=== PATIENT | female | born 1955 | race Caucasian/White ===

== ENCOUNTER 2017-09-11 07:40 | Emergency (ER) | payer OTHER ==
[~2017-09-11] VITALS: Ht 165.1 cm; Wt 75.5 kg
[~2017-09-11 07:40] MED LIST: GLUC1000 PO; LORTA5 PO; MEDR4PAK3 PO
[2017-09-11 07:47] VITALS: BP 182/87; PULSE 72; RESP 16; TEMP 98.1; O2SAT 96
[2017-09-11] MEDS ORDERED: ATOR10TA15 PO (07:55)
[2017-09-11] MEDS ORDERED: METF1000 PO (07:55)
[2017-09-11] MEDS ORDERED: ASPI-516 CHEW (07:56)
--- NOTE | 2017-09-11 08:17 | PD ---
HPI Chief Complaint: Skin Problem Time Seen by Provider: 08:07 Travel History International Travel<30 days: No Contact w/Intl Traveler<30days: No Traveled to known affect area: No History of Present Illness HPI This 62-year-old female is complaining of swelling and pain in her right hand. She is right-handed. She says that about 10 day days ago she was doing yard work and she thinks thin tip of a palm frond may have gone into the back of her hand. She noted a small black spot on the skin. Since then the third metacarpophalangeal joint has been swollen and quite painful. She has not noted a fever. It is very uncomfortable for her and keeps her awake at night. She does have a history of type 2 diabetes. She does not have a history of arthritis. PFSH Past Medical History Hx Anticoagulant Therapy: Yes (81 MG ASA DAILY) Diabetes: Yes (TYPE 2) Patient Takes Glucophage: Yes Diminished Hearing: No Tetanus Vaccination: Unknown ?: Not LMP: MENOPAUSAL Past Surgical History Tonsillectomy: Yes Social History Alcohol Use: Yes (rarely) Tobacco Use: No Substance Use: No Allergies-Medications (Allergen,Severity, Reaction): Coded Allergies: No Known Allergies (Unverified Adverse Reaction, Unknown, 09/11/17) Reported Meds & Prescriptions Reported Meds & Active Scripts Active Reported Aspirin 81 Mg Chew 81 Mg CHEW DAILY Metformin (Metformin HCl) 1,000 Mg Tab 1,000 Mg PO BIDPC Atorvastatin (Atorvastatin Calcium) 10 Mg Tab 10 Mg PO HS Review of Systems Except as stated in HPI: all other systems reviewed are Neg General / Constitutional: No: Fever, Chills Eyes: No: Diploplia, Blurred Vision Genitourinary: No: Urgency Hematologic/Lymphatic: No: Easy Bruising Physical Exam Narrative GENERAL: Well-developed female SKIN: Focused skin assessment warm/dry. HEAD: Atraumatic. Normocephalic. EYES: Pupils equal and round. No scleral icterus. No injection or drainage. ENT: No nasal bleeding or discharge. Mucous membranes pink and moist. NECK: Trachea midline. No JVD. MUSCULOSKELETAL: No obvious deformities. No clubbing. No cyanosis. No edema. Right hand does not show any deformity. There is no erythema. There is swelling at the third metacarpophalangeal joint with local tenderness. She is able to flex and extend the joint but it is uncomfortable for her. There is no lymphangitis NEUROLOGICAL: Awake and alert. No obvious cranial nerve deficits. Motor grossly within normal limits. Normal speech. PSYCHIATRIC: Appropriate mood and affect; insight and judgment normal. Data Data Last Documented VS Vital Signs Date Time Temp Pulse Resp B/P (MAP) Pulse Ox O2 Delivery O2 Flow Rate FiO2 09/11/17 11:47 78 16 159/82 (107) 100 Room Air 09/11/17 07:47 98.1 Orders Orders Complete Blood Count With Diff (09/11/17 08:11) Basic Metabolic Panel (Bmp) (09/11/17 08:11) Hand, Complete (Cpx7esc) (09/11/17 08:12) Tetanus/Diphtheria Tox Adult (Tetanus/Di (09/11/17 08:30) Cephalexin (Keflex) (09/11/17 09:30) Mri Hand W&W/O Contrast (09/11/17 ) Gadodiamide Pf Inj (Omniscan Pf Inj) (09/11/17 11:30) Labs Laboratory Tests Test 09/11/17 08:19 White Blood Count 9.1 TH/MM3 Red Blood Count 4.81 MIL/MM3 Hemoglobin 14.3 GM/DL Hematocrit 41.8 % Mean Corpuscular Volume 86.9 FL Mean Corpuscular Hemoglobin 29.7 PG Mean Corpuscular Hemoglobin Concent 34.1 % Red Cell Distribution Width 13.0 % Platelet Count 406 TH/MM3 Mean Platelet Volume 8.7 FL Neutrophils (%) (Auto) 58.7 % Lymphocytes (%) (Auto) 34.2 % Monocytes (%) (Auto) 4.5 % Eosinophils (%) (Auto) 2.3 % Basophils (%) (Auto) 0.3 % Neutrophils # (Auto) 5.4 TH/MM3 Lymphocytes # (Auto) 3.1 TH/MM3 Monocytes # (Auto) 0.4 TH/MM3 Eosinophils # (Auto) 0.2 TH/MM3 Basophils # (Auto) 0.0 TH/MM3 CBC Comment DIFF FINAL Differential Comment Blood Urea Nitrogen 19 MG/DL Creatinine 1.00 MG/DL Random Glucose 193 MG/DL Calcium Level 9.7 MG/DL Sodium Level 137 MEQ/L Potassium Level 4.2 MEQ/L Chloride Level 104 MEQ/L Carbon Dioxide Level 24.1 MEQ/L Anion Gap 9 MEQ/L Estimat Glomerular Filtration Rate 56 ML/MIN MDM Medical Decision Making Medical Screen Exam Complete: Yes Emergency Medical Condition: Yes Medical Record Reviewed: Yes Differential Diagnosis Differential includes foreign body, arthritis, septic arthritis Narrative Course White count is 9000. Blood sugar is 190. Plain x-rays do not show a foreign body or any abnormality. The patient does report that her symptoms have been progressive and I am very suspicious of foreign body present. I have discussed the case with Dr. Kennedy who recommends MRI. MRI has been done and shows soft tissue inflammation around the third metacarpal phalangeal joint but no evidence of osteomyelitis or abscess. Patient will be placed on Keflex. She is to follow-up with Dr. Kennedy for appointment on Sunday Diagnosis Primary Impression: Inflammation of hand joint Referrals: Yoandy Kennedy III, MD Scripts Cephalexin (Keflex) 500 Mg Cap 500 MG PO Q6H for Infection for 7 Days, #28 CAP 0 Refills Prov: Jose A Garcia MD 09/11/17 Disposition: DISCHARGE HOME Condition: Stable Jose A Garcia MD Sep 11, 2017 08:17
[2017-09-11 08:26] LABS: AUTOMATED NEUTROPHIL # 5.4 TH/MM3 (1.8-7.7); BASOPHIL % 0.3 % (0.0-2.0); EOSINOPHIL # 0.2 TH/MM3 (0-0.4); EOSINOPHIL % 2.3 % (0.0-4.0); HEMATOCRIT 41.8 % (35.0-46.0); HEMOGLOBIN 14.3 GM/DL (11.6-15.3); LYMPH % 34.2 % (9.0-44.0); LYMPHOCYTE # 3.1 TH/MM3 (1.0-4.8); MEAN CELL VOLUME 86.9 FL (80.0-100.0); MEAN CORPUSCULAR HEMOGLOBIN 29.7 PG (27.0-34.0); MEAN CORPUSCULAR HGB CONC 34.1 % (32.0-36.0); MEAN PLATELET VOLUME 8.7 FL (7.0-11.0); MONO % 4.5 % (0.0-8.0); MONOCYTE # 0.4 TH/MM3 (0-0.9); NEUT % 58.7 % (16.0-70.0); PLATELET COUNT 406 TH/MM3 (150-450); RED BLOOD COUNT 4.81 MIL/MM3 (4.00-5.30); WHITE BLOOD COUNT 9.1 TH/MM3 (4.0-11.0)
[2017-09-11] MEDS ORDERED: TETANUS/DIPHTHERIA TOXOID ADULT 0.5 ML VIAL IM ONE (08:30)
[2017-09-11 08:35] LABS: CALCIUM 9.7 MG/DL (8.5-10.1)
[2017-09-11 08:36] LABS: BICARBONATE 24.1 MEQ/L (21.0-32.0)
[2017-09-11] MEDS ORDERED: CEPHALEXIN MONOHYDRATE 500 MG CAP PO ONE (09:30)
--- NOTE | 2017-09-11 09:35 | RADRPT ---
EXAM DATE: 09/11/2017 8:54 AM EDT AGE/SEX: 62 years / Female INDICATIONS: Right hand pain/swelling mostly at the 3rd MCP joint after being stuck by thorn of palm while trimming. CLINICAL DATA: This is the patient's initial encounter. Patient reports that signs and symptoms have been present for 1 week and indicates a pain score of 6/10. MEDICAL/SURGICAL HISTORY: None. None. COMPARISON: No prior [facility] exams available for comparison. FINDINGS: Bony structures are intact and in normal alignment. Osseous density is normal. Soft tissues are unre markable. No radiopaque foreign bodies seen. Some irregularity involving the distal aspect of the fi fth middle phalangeal bone could be an old fracture CONCLUSION: No evidence of recent bony injury. Electronically signed by: Sonido Strickland MD 09/11/2017 9:34 AM EDT
[2017-09-11] MEDS ORDERED: GADODIAMIDE PF 287 MG/ML 5 ML VIAL (for RAD MRI) IV PUSH ONE (11:30)
[2017-09-11 11:47] VITALS: BP 159/82; PULSE 78; RESP 16; O2SAT 100
--- NOTE | 2017-09-11 13:41 | RADRPT ---
EXAM DATE: 09/11/2017 11:49 AM EDT AGE/SEX: 62 years / Female INDICATIONS: Abscess. Swelling at 3rd MCP jt of right hand. CLINICAL DATA: This is the patient's initial encounter. Patient reports that signs and symptoms have been present for 4 - 6 days and indicates a pain score of 4/10. MEDICAL/SURGICAL HISTORY: Diabetes mellitus type II. None. COMPARISON: No prior [facility] exams available for comparison. TECHNIQUE: Multiplanar, multisequence MRI examination was performed without contrast and after the i ntravenous administration of 14 ml Omniscan (gadodiamide) contrast as a single exam dose. FINDINGS: Marrow: There is homogeneous signal in the marrow of the visualized bones of the hand. Metacarpal-Phalangeal Joints: The MCP joints are unremarkable with no evidence of erosion, effusion, or malalignment. Interphalangeal Joints: The PIP and DIP joints are unremarkable with no evidence of erosion, effusio n or malalignment. Extensor Tendons: The visualized extensor tendons are intact. Flexor Tendons: The visualized flexor tendons are intact. Soft Tissues: There is no evidence of soft tissue mass or fluid collection. Post Contrast: There are some soft tissue swelling and enhancement dorsal to the third MCP joint. No underlying bony edema or abscess is identified. The tendons are intact CONCLUSION: 1. Soft tissue inflammation overlying the third MCP joint without evidence of underlying abscess or osteomyelitis Electronically signed by: Sonido Strickland MD 09/11/2017 1:40 PM EDT
[2017-09-11] MEDS ORDERED: CEPH-460 PO (13:46)
[2017-09-11 14:20] VITALS: BP 154/89; TEMP 97.6
== END 2017-09-11 14:22 | disposition home or self-care (01) ==
LOC: PHED 07:40
DX: M79.89 Other specified soft tissue disorders (principal); E11.9 Type 2 diabetes mellitus without complications; Z79.82 Long term (current) use of aspirin; Z79.899 Other long term (current) drug therapy; Z23 Encounter for immunization
CPT/HCPCS: 73130; 73220; 80048; 85025; 90471; 90714; 99285; A9579